=== PATIENT | female | born 1980 | race Caucasian/White ===

== ENCOUNTER 2017-01-22 19:03 | Emergency (ER) | payer SELFPAY ==
--- NOTE | 2017-01-22 21:07 | RAD ---
CHEST TWO VIEWS: Date: 01-22-17 Comparison: 10-26-15 FINDINGS: The heart is normal in size and the lungs are clear. There is no current sign of pneumonia or pleura l effusion. Mild degenerative changes are seen in the spine. There is some very slight wedging of on e of the lower thoracic vertebrae, though it does not appear acute. IMPRESSION: No acute thoracic findings. POS: HOME
== END 2017-01-22 19:50 | disposition home or self-care (01) ==
LOC: BURERS 19:03
DX: B34.9 Viral infection, unspecified (principal); E66.9 Obesity, unspecified; F17.210 Nicotine dependence, cigarettes, uncomplicated
CPT/HCPCS: 71020

== ENCOUNTER 2019-07-29 21:18 | Emergency (ER) | payer SELFPAY ==
[2019-07-29] MEDS ORDERED: methylPREDNISolone Sod Succ/PF 125 MG/2 ML VIAL ONE (21:38)
== END 2019-07-29 21:40 | disposition home or self-care (01) ==
LOC: BURERS 21:18
DX: J02.9 Acute pharyngitis, unspecified (principal); F17.210 Nicotine dependence, cigarettes, uncomplicated
CPT/HCPCS: 96372; 99282; J2930

== ENCOUNTER 2020-04-13 17:22 | Emergency (ER) | payer SELFPAY ==
[2020-04-13] MEDS ORDERED: Lidocaine 2% w/Epinephrine 1:200K 20 ML VIAL ONE (17:34)
[2020-04-13] MEDS ORDERED: Lidocaine 2% PF 5 ML VIAL ONE (17:35)
[2020-04-13] MEDS ORDERED: Amoxicillin/Potassium Clav 875 MG TAB ONE (18:13)
== END 2020-04-13 18:21 | disposition home or self-care (01) ==
LOC: BURERS 17:22
DX: L03.012 Cellulitis of left finger (principal); E66.9 Obesity, unspecified; F17.210 Nicotine dependence, cigarettes, uncomplicated
CPT/HCPCS: 10060; J2001

== ENCOUNTER 2021-06-21 13:23 | Emergency (ER) | payer OTHER, SELFPAY ==
[2021-06-21] MEDS ORDERED: traMADol HCl 50 MG TAB ONE (14:09)
[2021-06-21] MEDS ORDERED: Ibuprofen 800 MG TAB ONE (14:09)
== END 2021-06-21 14:23 | disposition home or self-care (01) ==
LOC: BURERS 13:23
DX: S93.402A Sprain of unspecified ligament of left ankle, initial encounter (principal); S80.02XA Contusion of left knee, initial encounter; F17.210 Nicotine dependence, cigarettes, uncomplicated; E66.9 Obesity, unspecified; W01.0XXA Fall on same level from slipping, tripping and stumbling without subsequent striking against object, initial encounter; Z68.45 Body mass index [BMI] 70 or greater, adult

== ENCOUNTER 2022-04-19 08:09 | Emergency (ER) | payer SELFPAY ==
[2022-04-19] MEDS ORDERED: Ondansetron ODT 4 MG TAB ONE (09:28)
[2022-04-19] MEDS ORDERED: Morphine 10 MG/ML VIAL ONE (09:28)
== END 2022-04-19 10:08 | disposition home or self-care (01) ==
LOC: BURERS 08:09
DX: K42.9 Umbilical hernia without obstruction or gangrene (principal); F17.210 Nicotine dependence, cigarettes, uncomplicated
CPT/HCPCS: 96372; 99283; J2270; Q0162

== ENCOUNTER 2024-03-12 15:35 | Emergency (ER) | payer SELFPAY | END 2024-03-12 16:47 | disposition home or self-care (01) | LOC: BURERS 15:35 | DX: J06.9 Acute upper respiratory infection, unspecified (principal) | CPT/HCPCS: 87081; 87430; 99283 ==

== ENCOUNTER 2025-05-22 02:42 | Emergency (ER) | payer SELFPAY ==
[2025-05-22] MEDS ORDERED: Dexamethasone 10 MG/ML VIAL ONE (04:02)
[2025-05-22] MEDS ORDERED: Sulfameth/Trimethoprim DS 800-160mg TAB ONE (04:02)
[2025-05-22] MEDS ORDERED: Bacitracin 1 PK ONE (04:02)
== END 2025-05-22 04:10 | disposition home or self-care (01) ==
LOC: BURERS 02:42
DX: J06.9 Acute upper respiratory infection, unspecified (principal); L03.313 Cellulitis of chest wall; E66.01 Morbid (severe) obesity due to excess calories; F17.210 Nicotine dependence, cigarettes, uncomplicated
CPT/HCPCS: 87428; 99283; J1100

== ENCOUNTER 2025-06-13 17:47 | Emergency (ER) | payer SELFPAY ==
[2025-06-13 18:29] LABS: #Basophils 0.1 thou/uL (0.0-0.2); #Eosinophils 0.2 thou/uL (0.0-0.7); #Lymphocytes 2.3 thou/uL (1.20-3.40); #Monocytes 0.4 thou/uL (0.11-0.59); #Neutrophils 8.5 thou/uL (1.40-6.50); %Basophils 0.7 % (0.0-1.0); %Eosinophils 1.4 % (0.0-10.0); %Lymphocytes 20.2 % (21.0-51.0); %Monocytes 3.2 % (0.0-10.0); %Neutrophils 74.6 % (42.0-75.0); Hematocrit 38.6 % (36.0-47.0); Hemoglobin 12.4 g/dL (12.0-16.0); Mean Corpuscular Hemoglobin 28.6 pg (27.0-31.0); Mean Corpuscular Volume 89.2 fl (78.0-98.0); Platelet Count 394 10x3/uL (130-400); Red Blood Cell (RBC) Count 4.33 mill/uL (4.20-5.40); White Blood Cell (WBC) Count 11.4 10x3/uL (4.8-10.8)
[2025-06-13 18:44] LABS: Troponin I 0.014 ng/mL (< 0.028)
[2025-06-13 18:50] LABS: ALT (SGPT) 19 U/L (Less than 34); AST (SGOT) 25 U/L (11-34); Albumin 4.0 g/dL (3.1-4.5); Alkaline Phosphatase 90 U/L (40-110); Anion Gap 15 mmol/L (10-20); BUN (Urea Nitrogen) 7 mg/dL (7.0-18.7); Bilirubin, Total 0.3 mg/dL (0.3-1.2); Calc. Creatinine Clearance 0 mL/min (70-130); Calcium 9.2 mg/dL (7.8-10.44); Carbon Dioxide 23 mmol/L (22-29); Chloride 104 mmol/L (98-107); Globulin 4.3 g/dL (2.4-3.5); Glucose 135 mg/dL (70-105); Potassium 3.7 mmol/L (3.5-5.1); Sodium 138 mmol/L (136-145)
== END 2025-06-13 20:18 | disposition home or self-care (01) ==
LOC: BURERS 17:47
DX: M54.6 Pain in thoracic spine (principal); R20.2 Paresthesia of skin; R29.700 NIHSS score 0; F17.210 Nicotine dependence, cigarettes, uncomplicated
CPT/HCPCS: 36415; 71046; 80053; 84484; 85025; 85379; 93005